=== PATIENT | male | born 1975 | race Caucasian/White ===

== ENCOUNTER 2020-06-21 12:48 | Inpatient (IN) | payer MEDICAID, OTHER ==
[~2020-06-21] VITALS: Ht 167.6 cm; Wt 76.7 kg
[2020-06-21] MEDS ORDERED: BENZ0.5T44 PO (12:52)
[2020-06-21] MEDS ORDERED: DIVA-85 PO (12:52)
[2020-06-21 14:55] LABS: COVID AG,FIA SOURCE NASOPHARYNGEAL
[2020-06-21] MEDS ORDERED: HALOPERIDOL 5 MG TABLET PO PRN (15:45)
[2020-06-21] MEDS ORDERED: ZOLPIDEM TARTRATE 10 MG TABLET PO PRN (15:45)
[2020-06-21] MEDS ORDERED: LORazepam 2 MG TABLET PO PRN (15:45)
[2020-06-21] MEDS ORDERED: DEXTROSE 50%-WATER 25 GM/50 ML SYRINGE IVP PRN (19:15)
[2020-06-22] MEDS ORDERED: OMEPRAZOLE 20 MG CAPSULE PO PRN (08:00)
[2020-06-22] MEDS ORDERED: BACITRACIN 28 GM OINTMENT TP PRN (08:00)
[2020-06-22] MEDS ORDERED: IBUPROFEN 600 MG TABLET PO PRN (08:00)
[2020-06-22] MEDS ORDERED: PETROLATUM,WHITE 28 GM JELLY TP PRN (08:00)
[2020-06-22] MEDS ORDERED: MAG HYDROX/AL HYDROX/SIMETH ES 30 ML SUSPENSION UDCUP PO PRN (08:00)
[2020-06-22] MEDS ORDERED: ACETAMINOPHEN 325 MG TABLET PO PRN (08:00)
[2020-06-22] MEDS ORDERED: LOPERAMIDE HCL 2 MG CAPSULE PO PRN (08:00)
[2020-06-22] MEDS ORDERED: ALBUTEROL SULFATE HFA 90 MCG/PUFF 8 GM INHALER IH PRN (08:00)
[2020-06-22] MEDS ORDERED: CloNIDine HCL 0.1 MG TABLET PO PRN (08:00)
[2020-06-22] MEDS ORDERED: ONDANSETRON HCL 4 MG TABLET PO PRN (08:00)
[2020-06-22] MEDS ORDERED: BENZOCAINE/MENTHOL LOZENGE PO PRN (08:00)
[2020-06-22] MEDS ORDERED: MAGNESIUM HYDROXIDE SUSPENSION 30 ML UDCUP PO PRN (08:00)
[2020-06-22] MEDS ORDERED: DOCUSATE SODIUM 100 MG CAPSULE PO PRN (08:00)
[2020-06-22] MEDS: METOPROLOL TARTRATE 25 MG TABLET PO SCH ×2 (09:00→17:00)
[2020-06-23 08:01] VITALS: BP 154/111
[2020-06-23] MEDS: METOPROLOL TARTRATE 25 MG TABLET PO SCH ×2 (09:00→17:00)
[2020-06-23] MEDS ORDERED: RisperiDONE MICROSPHERES 50 MG/2 ML SYRINGE IM SCH (09:00)
[2020-06-23] MEDS: VALPROIC ACID 250 MG CAPSULE PO SCH (17:00)
[2020-06-23] MEDS: BENZTROPINE MESYLATE 2 MG TABLET PO SCH (21:00)
[2020-06-23] MEDS: TraZODone HCL 50 MG TABLET PO SCH (21:00)
[2020-06-24] MEDS: PARoxetine HCL 20 MG TABLET PO SCH (09:00)
[2020-06-24] MEDS: VALPROIC ACID 250 MG CAPSULE PO SCH ×2 (09:00→17:00)
[2020-06-24] MEDS: METOPROLOL TARTRATE 25 MG TABLET PO SCH ×2 (09:00→17:00)
[2020-06-24] MEDS ORDERED: RisperiDONE MICROSPHERES 50 MG/2 ML SYRINGE IM SCH (13:12)
[2020-06-24 16:28] VITALS: BP 133/81
[2020-06-24] MEDS: TraZODone HCL 50 MG TABLET PO SCH (20:40)
[2020-06-24] MEDS: BENZTROPINE MESYLATE 2 MG TABLET PO SCH (20:40)
[2020-06-24] MEDS: INSULIN LISPRO 100 UNITS/ML SQ PRN (20:49)
[2020-06-24 20:57] LABS: GLUCOMETER DEV NAME(LOC) 3E.I 2; GLUCOSE,POINT OF CARE 174 MG/DL (70-110)
[2020-06-25 05:39] VITALS: BP 139/101
[2020-06-25 05:39] LABS: GLUCOMETER DEV NAME(LOC) 3E.I 2; GLUCOSE,POINT OF CARE 133 MG/DL (70-110)
[2020-06-25 05:58] LABS: CHOL/HDL RATIO 4.7 (4.2-7.3); FREE T4 (FREE THYROXINE) 1.18 ng/dL (0.76-1.46); THYROID STIMULATING HORMONE 4.59 uIU/mL (0.36-3.74)
[2020-06-25] MEDS: METOPROLOL TARTRATE 25 MG TABLET PO SCH ×2 (09:14→17:20)
[2020-06-25] MEDS: VALPROIC ACID 250 MG CAPSULE PO SCH ×2 (09:14→17:20)
[2020-06-25] MEDS: PARoxetine HCL 20 MG TABLET PO SCH (09:14)
[2020-06-25 09:17] VITALS: BP 147/83
[2020-06-25] MEDS: INSULIN LISPRO 100 UNITS/ML SQ PRN ×2 (11:52→21:28)
[2020-06-25 11:56] LABS: GLUCOMETER DEV NAME(LOC) 3E.I 2; GLUCOSE,POINT OF CARE 160 MG/DL (70-110)
[2020-06-25 16:34] VITALS: BP 127/97
[2020-06-25 17:37] LABS: GLUCOMETER DEV NAME(LOC) 3E.I 2; GLUCOSE,POINT OF CARE 117 MG/DL (70-110)
[2020-06-25] MEDS: TraZODone HCL 50 MG TABLET PO SCH (21:16)
[2020-06-25] MEDS: BENZTROPINE MESYLATE 2 MG TABLET PO SCH (21:16)
[2020-06-25 21:34] LABS: GLUCOMETER DEV NAME(LOC) 3E.I 2; GLUCOSE,POINT OF CARE 229 MG/DL (70-110)
[2020-06-26 05:28] LABS: GLUCOMETER DEV NAME(LOC) 3E.I 2; GLUCOSE,POINT OF CARE 156 MG/DL (70-110)
[2020-06-26] MEDS: INSULIN LISPRO 100 UNITS/ML SQ PRN ×4 (06:38→21:16)
[2020-06-26] MEDS: METOPROLOL TARTRATE 25 MG TABLET PO SCH ×2 (08:31→16:53)
[2020-06-26] MEDS: VALPROIC ACID 250 MG CAPSULE PO SCH ×2 (08:31→16:54)
[2020-06-26] MEDS: PARoxetine HCL 20 MG TABLET PO SCH (08:31)
[2020-06-26 08:38] VITALS: BP 138/91
[2020-06-26 11:36] LABS: GLUCOMETER DEV NAME(LOC) 3E.I 2; GLUCOSE,POINT OF CARE 126 MG/DL (70-110)
[2020-06-26 16:46] VITALS: BP 136/93
[2020-06-26 18:21] LABS: GLUCOMETER DEV NAME(LOC) 3E.I 2; GLUCOSE,POINT OF CARE 159 MG/DL (70-110)
[2020-06-26] MEDS: BENZTROPINE MESYLATE 2 MG TABLET PO SCH (21:14)
[2020-06-26] MEDS: TraZODone HCL 50 MG TABLET PO SCH (21:14)
[2020-06-26 21:39] LABS: GLUCOMETER DEV NAME(LOC) 3E.I 2; GLUCOSE,POINT OF CARE 201 MG/DL (70-110)
[2020-06-27 05:44] LABS: GLUCOMETER DEV NAME(LOC) 3E.I 2; GLUCOSE,POINT OF CARE 118 MG/DL (70-110)
[2020-06-27] MEDS: INSULIN LISPRO 100 UNITS/ML SQ PRN ×3 (06:36→21:08)
[2020-06-27] MEDS: METOPROLOL TARTRATE 25 MG TABLET PO SCH ×2 (08:00→16:22)
[2020-06-27] MEDS: PARoxetine HCL 20 MG TABLET PO SCH (08:00)
[2020-06-27] MEDS: VALPROIC ACID 250 MG CAPSULE PO SCH ×2 (08:00→16:22)
[2020-06-27 08:19] VITALS: BP 131/97
[2020-06-27 11:13] LABS: GLUCOMETER DEV NAME(LOC) 3E.I 2; GLUCOSE,POINT OF CARE 157 MG/DL (70-110)
[2020-06-27 11:42] LABS: COVID AG,FIA SOURCE NASOPHARYNGEAL
[2020-06-27 16:43] LABS: GLUCOMETER DEV NAME(LOC) 3E.I 2; GLUCOSE,POINT OF CARE 92 MG/DL (70-110)
[2020-06-27 17:49] VITALS: BP 126/83
[2020-06-27] MEDS: BENZTROPINE MESYLATE 2 MG TABLET PO SCH (20:21)
[2020-06-27] MEDS: TraZODone HCL 50 MG TABLET PO SCH (20:21)
[2020-06-27 20:53] LABS: GLUCOMETER DEV NAME(LOC) 3E.I 2; GLUCOSE,POINT OF CARE 223 MG/DL (70-110)
[2020-06-28 05:33] LABS: GLUCOMETER DEV NAME(LOC) 3E.I 2; GLUCOSE,POINT OF CARE 134 MG/DL (70-110)
[2020-06-28 08:13] VITALS: BP 130/96
[2020-06-28] MEDS: PARoxetine HCL 20 MG TABLET PO SCH (08:32)
[2020-06-28] MEDS: VALPROIC ACID 250 MG CAPSULE PO SCH ×2 (08:32→16:38)
[2020-06-28] MEDS: METOPROLOL TARTRATE 25 MG TABLET PO SCH ×2 (08:32→16:38)
[2020-06-28 11:25] LABS: GLUCOMETER DEV NAME(LOC) 3E.I 2; GLUCOSE,POINT OF CARE 147 MG/DL (70-110)
[2020-06-28] MEDS: INSULIN LISPRO 100 UNITS/ML SQ PRN (11:37)
[2020-06-28 16:56] LABS: GLUCOMETER DEV NAME(LOC) 3E.I 2; GLUCOSE,POINT OF CARE 122 MG/DL (70-110)
[2020-06-28] MEDS: TraZODone HCL 50 MG TABLET PO SCH (21:00)
[2020-06-28] MEDS: BENZTROPINE MESYLATE 2 MG TABLET PO SCH ×2 (21:00→21:22)
[2020-06-28 21:57] VITALS: BP 120/82
[2020-06-29 04:19] VITALS: BP 132/92
[2020-06-29 06:04] LABS: GLUCOMETER DEV NAME(LOC) 3E.I 2; GLUCOSE,POINT OF CARE 150 MG/DL (70-110)
[2020-06-29] MEDS: INSULIN LISPRO 100 UNITS/ML SQ PRN (06:37)
[2020-06-29] MEDS: VALPROIC ACID 250 MG CAPSULE PO SCH (08:19)
[2020-06-29] MEDS: PARoxetine HCL 20 MG TABLET PO SCH (08:19)
[2020-06-29] MEDS: METOPROLOL TARTRATE 25 MG TABLET PO SCH (08:20)
[2020-06-29 08:30] VITALS: BP 115/79
[2020-06-29] MEDS ORDERED: MULTIVITAMINS WITH MINERALS, THERAPEUTIC TABLET PO SCH (09:00)
[2020-06-29 12:01] LABS: GLUCOMETER DEV NAME(LOC) 3E.I 2; GLUCOSE,POINT OF CARE 109 MG/DL (70-110)
[2020-06-29] MEDS ORDERED: RISPC50 IM (12:24)
[2020-06-29] MEDS ORDERED: PARO-38 PO (12:24)
[2020-06-29] MEDS ORDERED: TRAZ-252 PO (12:27)
[2020-06-29] MEDS ORDERED: VALP250C48 PO (12:27)
[2020-06-29] MEDS ORDERED: METO25 PO (13:15)
== END 2020-06-29 13:45 | disposition home or self-care (01) | DRG 750 ==
LOC: EMS 12:53 → 3EI 17:50
PROVIDERS: ADMIT Psychiatry & Neurology Psychiatry; ATTEND Psychiatry & Neurology Psychiatry
DX: F20.0 Paranoid schizophrenia (principal); Z91.19 Patient's noncompliance with other medical treatment and regimen; F10.10 Alcohol abuse, uncomplicated; F17.200 Nicotine dependence, unspecified, uncomplicated; K59.00 Constipation, unspecified; Z20.822 Contact with and (suspected) exposure to COVID-19
CPT/HCPCS: 80061; 80164; 82962; 83036; 84439; 84443; 87426; 99285; J2794

== ENCOUNTER 2021-08-17 12:03 | Emergency (ER) | payer MEDICAID, OTHER ==
[~2021-08-17 12:03] MED LIST: BENZ0.5T49 PO; METO25 PO; PARO-38 PO; RISPC50 IM; TRAZ-252 PO; VALP250C48 PO
== END 2021-08-17 13:10 | disposition left against medical advice (07) ==
LOC: EMS 12:03
DX: Z53.21 Procedure and treatment not carried out due to patient leaving prior to being seen by health care provider (principal)

== ENCOUNTER 2021-10-28 12:28 | Emergency (ER) | payer OTHER | END 2021-10-28 12:47 | disposition still patient (30) | LOC: EMS 12:37 | DX: Z53.21 Procedure and treatment not carried out due to patient leaving prior to being seen by health care provider (principal) ==

== ENCOUNTER 2021-10-28 13:08 | Inpatient (IN) | payer MEDICAID, OTHER ==
[~2021-10-28] VITALS: Ht 167.6 cm; Wt 74.8 kg
[2021-10-28] MEDS ORDERED: LORazepam 2 MG/ML VIAL IM ONE (13:45)
[2021-10-28] MEDS ORDERED: HALOPERIDOL LACTATE 5 MG/ML VIAL IM ONE (13:45)
[2021-10-28] MEDS ORDERED: DiphenhydrAMINE HCL 50 MG/ML VIAL IM ONE (13:45)
[2021-10-28 14:03] LABS: COVID AG,FIA SOURCE NASOPHARYNGEAL
[2021-10-28 14:52] LABS: BASOPHILS % (AUTO) 0.5 % (0.0-2.0); EOSINOPHILS % (AUTO) 2.3 % (1.0-6.0); HEMATOCRIT 47.6 % (41-53); HEMOGLOBIN 16.1 g/dL (13.5-17.5); LYMPHOCYTES # (AUTO) 2.1 K/uL (1.0-4.8); LYMPHOCYTES % (AUTO) 27.1 % (22.0-44.0); MEAN CORPUSCULAR HEMOGLOBIN 31.9 pg (26.0-34.0); MEAN CORPUSCULAR HGB CONC 33.8 G/dL (31.0-37.0); MEAN CORPUSCULAR VOLUME 95 fL (80-100); MONOCYTES # (AUTO) 0.6 K/uL (0.1-1.0); MONOCYTES % (AUTO) 8.1 % (2.0-9.0); NEUTROPHILS # (AUTO) 4.8 K/uL (1.8-7.7); PLATELET COUNT (AUTO) 184 K/uL (150-450); RED BLOOD CELL COUNT(AUTO) 5.03 MIL/uL (4.50-5.90); RED CELL DISTRIBUTION WIDTH 13.2 % (11.5-14.5)
[2021-10-28] MEDS ORDERED: ZOLPIDEM TARTRATE 10 MG TABLET PO PRN (15:00)
[2021-10-28 15:15] LABS: ANION GAP 7 mmol/L (8-16); CALCIUM, TOTAL 9.1 mg/dL (8.8-10.5); CARBON DIOXIDE 27 mmol/L (22-29); CHLORIDE 106 mmol/L (98-107); CREATININE 0.94 mg/dL (0.60-1.30); GLUCOSE,RANDOM 101 mg/dL (70-110); POTASSIUM 4.2 mmol/L (3.5-5.1); SODIUM SERUM 140 mmol/L (136-145); UREA NITROGEN, BLOOD 13 mg/dL (7-18)
[2021-10-28 15:16] LABS: GLOMERULAR FILTR. RATE CALC > 60 mL/min (>60)
[2021-10-28 15:18] LABS: ALANINE AMINOTRANSFERASE 19 U/L (12-78); ALBUMIN 3.8 g/dL (3.4-5.0); ALKALINE PHOSPHATASE 42 U/L (46-116); ASPARTATE AMINOTRANSFERASE 17 U/L (15-37); BILIRUBIN,TOTAL 0.4 mg/dL (0.1-1.0); TOTAL PROTEIN, SERUM 7.3 g/dL (6.4-8.2)
[2021-10-28 22:37] VITALS: BP 108/72
[2021-10-29] MEDS ORDERED: ALBUTEROL SULFATE HFA 90 MCG/PUFF 8 GM INHALER IH PRN (07:00)
[2021-10-29] MEDS ORDERED: CloNIDine HCL 0.1 MG TABLET PO PRN (07:00)
[2021-10-29] MEDS ORDERED: MAGNESIUM HYDROXIDE SUSPENSION 30 ML UDCUP PO PRN (07:00)
[2021-10-29] MEDS ORDERED: ONDANSETRON HCL 4 MG TABLET PO PRN (07:00)
[2021-10-29] MEDS ORDERED: BACITRACIN 28 GM OINTMENT TP PRN (07:00)
[2021-10-29] MEDS ORDERED: BENZOCAINE/MENTHOL LOZENGE PO PRN (07:00)
[2021-10-29] MEDS ORDERED: LOPERAMIDE HCL 2 MG CAPSULE PO PRN (07:00)
[2021-10-29] MEDS ORDERED: OMEPRAZOLE 20 MG CAPSULE PO PRN (07:00)
[2021-10-29] MEDS ORDERED: MAG HYDROX/AL HYDROX/SIMETH ES 30 ML SUSPENSION UDCUP PO PRN (07:00)
[2021-10-29] MEDS ORDERED: IBUPROFEN 600 MG TABLET PO PRN (07:00)
[2021-10-29] MEDS ORDERED: PETROLATUM,WHITE 28 GM JELLY TP PRN (07:00)
[2021-10-29] MEDS ORDERED: DOCUSATE SODIUM 100 MG CAPSULE PO PRN (07:00)
[2021-10-29] MEDS ORDERED: ACETAMINOPHEN 325 MG TABLET PO PRN (07:00)
[2021-10-29] MEDS: METOPROLOL TARTRATE 25 MG TABLET PO SCH ×2 (08:17→16:16)
[2021-10-29 08:48] VITALS: BP 132/70
[2021-10-29 14:27] LABS: GLUCOMETER DEV NAME(LOC) BV3N.; GLUCOSE,POINT OF CARE 145 MG/DL (70-110)
[2021-10-29] MEDS ORDERED: GLUCAGON,HUMAN RECOMBINANT 1 MG VIAL IM PRN (14:45)
[2021-10-29 20:24] VITALS: BP 134/90
[2021-10-30] MEDS: INSULIN LISPRO 100 UNITS/ML SQ PRN (06:22)
[2021-10-30 06:31] LABS: GLUCOMETER DEV NAME(LOC) BV3N.; GLUCOSE,POINT OF CARE 147 MG/DL (70-110)
[2021-10-30] MEDS: METOPROLOL TARTRATE 25 MG TABLET PO SCH ×2 (08:27→16:47)
[2021-10-30 09:53] VITALS: BP 151/103
[2021-10-30 13:06] LABS: GLUCOMETER DEV NAME(LOC) BV3N.; GLUCOSE,POINT OF CARE 162 MG/DL (70-110)
[2021-10-30 20:50] VITALS: BP 112/79
[2021-10-31 06:31] LABS: GLUCOMETER DEV NAME(LOC) BV3N.; GLUCOSE,POINT OF CARE 131 MG/DL (70-110)
[2021-10-31 08:29] VITALS: BP 115/81
[2021-10-31] MEDS: DIVALPROEX SODIUM 500 MG DR TABLET PO SCH ×2 (08:37→16:35)
[2021-10-31] MEDS: METOPROLOL TARTRATE 25 MG TABLET PO SCH ×2 (08:38→16:35)
[2021-10-31] MEDS ORDERED: RisperiDONE MICROSPHERES 50 MG/2 ML SYRINGE IM SCH (09:00)
[2021-10-31 17:20] LABS: GLUCOMETER DEV NAME(LOC) BV3N.; GLUCOSE,POINT OF CARE 136 MG/DL (70-110)
[2021-10-31] MEDS: LORazepam 2 MG TABLET PO PRN (18:18)
[2021-10-31 20:16] VITALS: BP 121/84
[2021-11-01 07:00] LABS: GLUCOMETER DEV NAME(LOC) BV3N.; GLUCOSE,POINT OF CARE 113 MG/DL (70-110)
[2021-11-01] MEDS: LORazepam 2 MG TABLET PO PRN ×2 (08:17→16:42)
[2021-11-01] MEDS: METOPROLOL TARTRATE 25 MG TABLET PO SCH ×2 (08:17→16:42)
[2021-11-01] MEDS: DIVALPROEX SODIUM 500 MG DR TABLET PO SCH ×2 (08:17→16:42)
[2021-11-01] MEDS: HALOPERIDOL 5 MG TABLET PO PRN ×2 (08:17→16:42)
[2021-11-01 08:33] VITALS: BP 114/74
[2021-11-01 17:21] LABS: GLUCOMETER DEV NAME(LOC) BV3N.; GLUCOSE,POINT OF CARE 112 MG/DL (70-110)
[2021-11-01 20:13] VITALS: BP 103/71
[2021-11-02 06:31] LABS: GLUCOMETER DEV NAME(LOC) BV3N.; GLUCOSE,POINT OF CARE 115 MG/DL (70-110)
[2021-11-02] MEDS: HALOPERIDOL 5 MG TABLET PO PRN ×2 (08:36→17:08)
[2021-11-02] MEDS: LORazepam 2 MG TABLET PO PRN ×2 (08:36→17:08)
[2021-11-02] MEDS: DIVALPROEX SODIUM 500 MG DR TABLET PO SCH ×2 (08:36→17:08)
[2021-11-02] MEDS: METOPROLOL TARTRATE 25 MG TABLET PO SCH ×2 (08:36→17:08)
[2021-11-02 08:38] VITALS: BP 107/72
[2021-11-02 11:56] LABS: GLUCOMETER DEV NAME(LOC) BV3N.; GLUCOSE,POINT OF CARE 149 MG/DL (70-110)
[2021-11-02 17:11] LABS: GLUCOMETER DEV NAME(LOC) BV3N.; GLUCOSE,POINT OF CARE 119 MG/DL (70-110)
[2021-11-02 20:13] VITALS: BP 114/79
[2021-11-03 06:26] LABS: GLUCOMETER DEV NAME(LOC) BV3N.; GLUCOSE,POINT OF CARE 100 MG/DL (70-110)
[2021-11-03 08:15] VITALS: BP 120/75
[2021-11-03] MEDS: METOPROLOL TARTRATE 25 MG TABLET PO SCH ×2 (08:20→16:51)
[2021-11-03] MEDS: DIVALPROEX SODIUM 500 MG DR TABLET PO SCH ×2 (08:20→16:51)
[2021-11-03] MEDS: LORazepam 2 MG TABLET PO PRN (08:21)
[2021-11-03] MEDS: HALOPERIDOL 5 MG TABLET PO PRN (08:21)
[2021-11-03 17:06] LABS: GLUCOMETER DEV NAME(LOC) BV3N.; GLUCOSE,POINT OF CARE 146 MG/DL (70-110)
[2021-11-03] MEDS: INSULIN LISPRO 100 UNITS/ML SQ PRN (17:12)
[2021-11-03 20:13] VITALS: BP 118/66
[2021-11-04 06:11] LABS: GLUCOMETER DEV NAME(LOC) BV3N.; GLUCOSE,POINT OF CARE 128 MG/DL (70-110)
[2021-11-04] MEDS: METOPROLOL TARTRATE 25 MG TABLET PO SCH (08:10)
[2021-11-04] MEDS: DIVALPROEX SODIUM 500 MG DR TABLET PO SCH (08:10)
[2021-11-04 09:02] LABS: GLUCOMETER DEV NAME(LOC) POC.BV
[2021-11-04 09:15] VITALS: BP 112/71
[2021-11-04] MEDS ORDERED: DIVA-112 PO (13:59)
== END 2021-11-04 15:45 | disposition home or self-care (01) | DRG 750 ==
LOC: EMS 13:21 → B3A 20:03
PROVIDERS: ADMIT Psychiatry & Neurology Psychiatry; ATTEND Psychiatry & Neurology Psychiatry
DX: F20.9 Schizophrenia, unspecified (principal); R45.851 Suicidal ideations; F41.9 Anxiety disorder, unspecified; K21.9 Gastro-esophageal reflux disease without esophagitis; K59.00 Constipation, unspecified; F17.200 Nicotine dependence, unspecified, uncomplicated; G47.00 Insomnia, unspecified; Z20.822 Contact with and (suspected) exposure to COVID-19
CPT/HCPCS: 80053; 82962; 85025; 99285; G0480; J1200; J1630; J2060; J2794

== ENCOUNTER 2022-02-13 16:35 | Inpatient (IN) | payer MEDICAID ==
[~2022-02-13] VITALS: Ht 167.6 cm; Wt 71.7 kg
[~2022-02-13 16:35] MED LIST changes: -BENZ0.5T49 PO; +DIVA-112 PO; -PARO-38 PO; -TRAZ-252 PO; -VALP250C48 PO
[2022-02-13] MEDS ORDERED: HALOPERIDOL 5 MG TABLET PO PRN (17:30)
[2022-02-13 17:36] LABS: GLUCOMETER DEV NAME(LOC) POC.BV
[2022-02-13] MEDS ORDERED: PNEUMOCOCCAL VACCINE POLYVALENT 0.5 ML VIAL [PPSV23] IM. ONE (18:00)
[2022-02-13] MEDS ORDERED: INFLUENZA VIRUS VACCINE QVS 2022-23 (6MO+)/PF 60 MCG/0.5 ML SYRINGE IM. ONE (18:00)
[2022-02-13 20:53] VITALS: BP 119/77
[2022-02-13 20:54] VITALS: BP 119/77
[2022-02-14] MEDS ORDERED: ONDANSETRON HCL 4 MG TABLET PO PRN (05:45)
[2022-02-14] MEDS ORDERED: OMEPRAZOLE 20 MG CAPSULE PO PRN (05:45)
[2022-02-14] MEDS ORDERED: BACITRACIN 28 GM OINTMENT TP PRN (05:45)
[2022-02-14] MEDS ORDERED: MAGNESIUM HYDROXIDE SUSPENSION 30 ML UDCUP PO PRN (05:45)
[2022-02-14] MEDS ORDERED: IBUPROFEN 600 MG TABLET PO PRN (05:45)
[2022-02-14] MEDS ORDERED: MAG HYDROX/AL HYDROX/SIMETH ES 30 ML SUSPENSION UDCUP PO PRN (05:45)
[2022-02-14] MEDS ORDERED: BENZOCAINE/MENTHOL LOZENGE PO PRN (05:45)
[2022-02-14] MEDS ORDERED: ALBUTEROL SULFATE HFA 90 MCG/PUFF 8 GM INHALER IH PRN (05:45)
[2022-02-14] MEDS ORDERED: LOPERAMIDE HCL 2 MG CAPSULE PO PRN (05:45)
[2022-02-14] MEDS ORDERED: DOCUSATE SODIUM 100 MG CAPSULE PO PRN (05:45)
[2022-02-14] MEDS ORDERED: ACETAMINOPHEN 325 MG TABLET PO PRN (05:45)
[2022-02-14] MEDS ORDERED: CloNIDine HCL 0.1 MG TABLET PO PRN (05:45)
[2022-02-14] MEDS ORDERED: PETROLATUM,WHITE 28 GM JELLY TP PRN (05:45)
[2022-02-14 07:34] LABS: BASOPHILS % (AUTO) 1.3 % (0.0-2.0); EOSINOPHILS % (AUTO) 3.8 % (1.0-6.0); HEMATOCRIT 46.3 % (41-53); HEMOGLOBIN 15.7 g/dL (13.5-17.5); LYMPHOCYTES # (AUTO) 2.1 K/uL (1.0-4.8); LYMPHOCYTES % (AUTO) 36.6 % (22.0-44.0); MEAN CORPUSCULAR HEMOGLOBIN 32.2 pg (26.0-34.0); MEAN CORPUSCULAR HGB CONC 33.9 G/dL (31.0-37.0); MEAN CORPUSCULAR VOLUME 95 fL (80-100); MONOCYTES # (AUTO) 0.6 K/uL (0.1-1.0); MONOCYTES % (AUTO) 10.7 % (2.0-9.0); NEUTROPHILS # (AUTO) 2.8 K/uL (1.8-7.7); NEUTROPHILS % (AUTO) 47.6 % (40.0-70.0); PLATELET COUNT (AUTO) 167 K/uL (150-450); RED BLOOD CELL COUNT(AUTO) 4.87 MIL/uL (4.50-5.90); RED CELL DISTRIBUTION WIDTH 13.8 % (11.5-14.5)
[2022-02-14 07:49] LABS: HEMOGLOBIN A1C 6.7 % (3.8-5.6)
[2022-02-14 07:59] LABS: ALANINE AMINOTRANSFERASE 30 U/L (12-78); ALBUMIN 3.6 g/dL (3.4-5.0); ALKALINE PHOSPHATASE 48 U/L (46-116); ANION GAP 6 mmol/L (8-16); ASPARTATE AMINOTRANSFERASE 21 U/L (15-37); BILIRUBIN,TOTAL 0.9 mg/dL (0.1-1.0); CALCIUM, TOTAL 8.9 mg/dL (8.8-10.5); CARBON DIOXIDE 31 mmol/L (22-29); CHLORIDE 105 mmol/L (98-107); CHOL/HDL RATIO 1.9 (4.2-7.3); CHOLESTEROL 103 mg/dL (131-200); CREATININE 1.01 mg/dL (0.60-1.30); FREE T4 (FREE THYROXINE) 1.03 ng/dL (0.76-1.46); GLUCOSE,RANDOM 147 mg/dL (70-110); HDL CHOLESTEROL 55 mg/dL (40-60); LDL CHOL (CALC.) 40 mg/dL (0-130); SODIUM SERUM 142 mmol/L (136-145); THYROID STIMULATING HORMONE 2.66 uIU/mL (0.36-3.74); TOTAL PROTEIN, SERUM 7.2 g/dL (6.4-8.2); TRIGLYCERIDES 41 mg/dL (15-150); UREA NITROGEN, BLOOD 14 mg/dL (7-18)
[2022-02-14 08:00] LABS: GLOMERULAR FILTR. RATE CALC > 60 mL/min (>60)
[2022-02-14] MEDS: METOPROLOL TARTRATE 25 MG TABLET PO SCH ×2 (08:39→16:59)
[2022-02-14 08:44] VITALS: BP 107/62
[2022-02-14] MEDS: LORazepam 2 MG TABLET PO PRN (09:39)
[2022-02-14 14:31] LABS: GLUCOMETER DEV NAME(LOC) BV3S.; GLUCOSE,POINT OF CARE 105 MG/DL (70-110)
[2022-02-14 17:11] LABS: GLUCOMETER DEV NAME(LOC) BV3N.; GLUCOSE,POINT OF CARE 257 MG/DL (70-110)
[2022-02-14] MEDS ORDERED: HALOPERIDOL LACTATE 5 MG/ML VIAL IM ONE (19:30)
[2022-02-14] MEDS ORDERED: LORazepam 2 MG/ML VIAL IM ONE (19:30)
[2022-02-14] MEDS: RisperiDONE 2 MG TABLET PO SCH (20:03)
[2022-02-14 20:18] VITALS: BP 120/65
[2022-02-14 21:31] LABS: GLUCOMETER DEV NAME(LOC) BV3N.; GLUCOSE,POINT OF CARE 140 MG/DL (70-110)
[2022-02-15] MEDS: RisperiDONE 2 MG TABLET PO SCH ×2 (08:11→20:15)
[2022-02-15] MEDS: METOPROLOL TARTRATE 25 MG TABLET PO SCH ×2 (08:11→16:28)
[2022-02-15] MEDS: LORazepam 2 MG TABLET PO PRN (08:15)
[2022-02-15 08:36] VITALS: BP 110/70
[2022-02-15 11:51] LABS: GLUCOMETER DEV NAME(LOC) BV3N.; GLUCOSE,POINT OF CARE 167 MG/DL (70-110)
[2022-02-15] MEDS ORDERED: GLUCAGON,HUMAN RECOMBINANT 1 MG VIAL IM PRN (15:00)
[2022-02-15 17:01] LABS: GLUCOMETER DEV NAME(LOC) BV3N.; GLUCOSE,POINT OF CARE 214 MG/DL (70-110)
[2022-02-15] MEDS: INSULIN LISPRO 100 UNITS/ML SQ PRN (17:01)
[2022-02-15 20:03] VITALS: BP 122/67
[2022-02-15 20:41] LABS: GLUCOMETER DEV NAME(LOC) BV3N.; GLUCOSE,POINT OF CARE 115 MG/DL (70-110)
[2022-02-16] MEDS: INSULIN LISPRO 100 UNITS/ML SQ PRN ×3 (06:52→16:53)
[2022-02-16 08:23] VITALS: BP 115/78
[2022-02-16] MEDS: METOPROLOL TARTRATE 25 MG TABLET PO SCH ×2 (08:27→16:49)
[2022-02-16] MEDS: RisperiDONE 2 MG TABLET PO SCH ×2 (08:27→20:14)
[2022-02-16 11:15] LABS: GLUCOMETER DEV NAME(LOC) BV3N.; GLUCOSE,POINT OF CARE 165 MG/DL (70-110)
[2022-02-16 17:11] LABS: GLUCOMETER DEV NAME(LOC) BV3N.; GLUCOSE,POINT OF CARE 192 MG/DL (70-110)
[2022-02-16] MEDS: ZOLPIDEM TARTRATE 10 MG TABLET PO PRN (20:14)
[2022-02-16] MEDS: LORazepam 2 MG TABLET PO PRN (20:14)
[2022-02-16 20:19] VITALS: BP 140/88
[2022-02-16 20:40] LABS: GLUCOMETER DEV NAME(LOC) BV3N.; GLUCOSE,POINT OF CARE 108 MG/DL (70-110)
[2022-02-17 06:21] LABS: GLUCOMETER DEV NAME(LOC) BV3N.; GLUCOSE,POINT OF CARE 117 MG/DL (70-110)
[2022-02-17] MEDS: RisperiDONE 2 MG TABLET PO SCH ×2 (08:00→20:12)
[2022-02-17] MEDS: METOPROLOL TARTRATE 25 MG TABLET PO SCH ×2 (08:00→16:42)
[2022-02-17 08:42] VITALS: BP 131/87
[2022-02-17 11:27] LABS: GLUCOMETER DEV NAME(LOC) BV3N.; GLUCOSE,POINT OF CARE 241 MG/DL (70-110)
[2022-02-17] MEDS: INSULIN LISPRO 100 UNITS/ML SQ PRN ×2 (12:16→16:43)
[2022-02-17] MEDS: LORazepam 2 MG TABLET PO PRN ×2 (16:42→20:50)
[2022-02-17 17:06] LABS: GLUCOMETER DEV NAME(LOC) BV3N.; GLUCOSE,POINT OF CARE 278 MG/DL (70-110)
[2022-02-17 20:10] VITALS: BP 146/74
[2022-02-17] MEDS: ZOLPIDEM TARTRATE 10 MG TABLET PO PRN (20:12)
[2022-02-17 20:40] LABS: GLUCOMETER DEV NAME(LOC) BV3N.; GLUCOSE,POINT OF CARE 130 MG/DL (70-110)
[2022-02-18 06:21] LABS: GLUCOMETER DEV NAME(LOC) BV3N.; GLUCOSE,POINT OF CARE 109 MG/DL (70-110)
[2022-02-18] MEDS: METOPROLOL TARTRATE 25 MG TABLET PO SCH ×2 (08:21→16:01)
[2022-02-18] MEDS: RisperiDONE 2 MG TABLET PO SCH ×2 (08:21→21:10)
[2022-02-18] MEDS: LORazepam 2 MG TABLET PO PRN ×2 (08:21→16:18)
[2022-02-18 09:42] VITALS: BP 131/74
[2022-02-18 11:22] LABS: GLUCOMETER DEV NAME(LOC) BV3N.; GLUCOSE,POINT OF CARE 158 MG/DL (70-110)
[2022-02-18] MEDS: INSULIN LISPRO 100 UNITS/ML SQ PRN ×3 (11:27→20:28)
[2022-02-18] MEDS ORDERED: METO25 PO (13:30)
[2022-02-18 17:00] VITALS: BP 107/67
[2022-02-18 17:06] LABS: GLUCOMETER DEV NAME(LOC) BV3N.; GLUCOSE,POINT OF CARE 215 MG/DL (70-110)
[2022-02-18 17:40] VITALS: BP 107/70
[2022-02-18 20:21] LABS: GLUCOMETER DEV NAME(LOC) BV3N.; GLUCOSE,POINT OF CARE 164 MG/DL (70-110)
[2022-02-18 20:29] VITALS: BP 111/69
[2022-02-19 06:27] LABS: GLUCOMETER DEV NAME(LOC) BV3N.; GLUCOSE,POINT OF CARE 79 MG/DL (70-110)
[2022-02-19] MEDS: METOPROLOL TARTRATE 25 MG TABLET PO SCH ×2 (08:09→16:33)
[2022-02-19] MEDS: RisperiDONE 2 MG TABLET PO SCH ×2 (08:09→20:28)
[2022-02-19 08:12] VITALS: BP 126/79
[2022-02-19] MEDS: LORazepam 2 MG TABLET PO PRN (08:15)
[2022-02-19] MEDS: INSULIN LISPRO 100 UNITS/ML SQ PRN ×3 (11:42→20:37)
[2022-02-19 11:51] LABS: GLUCOMETER DEV NAME(LOC) BV3N.; GLUCOSE,POINT OF CARE 199 MG/DL (70-110)
[2022-02-19 16:30] VITALS: BP 116/70
[2022-02-19 16:31] LABS: GLUCOMETER DEV NAME(LOC) BV3N.; GLUCOSE,POINT OF CARE 214 MG/DL (70-110)
[2022-02-19] MEDS ORDERED: RISP2TAB86 PO (19:10)
[2022-02-19 20:26] LABS: GLUCOMETER DEV NAME(LOC) BV3N.; GLUCOSE,POINT OF CARE 204 MG/DL (70-110)
[2022-02-19 20:51] VITALS: BP 130/82
[2022-02-20 06:16] LABS: GLUCOMETER DEV NAME(LOC) BV3N.; GLUCOSE,POINT OF CARE 131 MG/DL (70-110)
[2022-02-20] MEDS: RisperiDONE 2 MG TABLET PO SCH (08:03)
[2022-02-20] MEDS: METOPROLOL TARTRATE 25 MG TABLET PO SCH (08:03)
[2022-02-20 08:11] LABS: GLUCOMETER DEV NAME(LOC) POC.BV
[2022-02-20 08:20] VITALS: BP 139/77
[2022-02-20] MEDS: INSULIN LISPRO 100 UNITS/ML SQ PRN (11:54)
[2022-02-20 12:01] LABS: GLUCOMETER DEV NAME(LOC) BV3N.; GLUCOSE,POINT OF CARE 153 MG/DL (70-110)
== END 2022-02-20 12:44 | disposition home or self-care (01) | DRG 750 ==
LOC: B2S 17:27 → B3A 19:17
PROVIDERS: ADMIT Psychiatry & Neurology Psychiatry; ATTEND Psychiatry & Neurology Psychiatry
DX: F20.0 Paranoid schizophrenia (principal); F41.9 Anxiety disorder, unspecified; Z20.822 Contact with and (suspected) exposure to COVID-19; G47.00 Insomnia, unspecified; K21.9 Gastro-esophageal reflux disease without esophagitis; K59.00 Constipation, unspecified; Z79.899 Other long term (current) drug therapy; Z87.891 Personal history of nicotine dependence
CPT/HCPCS: 80053; 80061; 82962; 83036; 84439; 84443; 85025; J1630; J2060